=== PATIENT | male | born 1965 | race Caucasian/White ===

== ENCOUNTER 2023-04-27 16:44 | Outpatient (CLI) | payer BC, SELFPAY ==
--- NOTE | ~2023-04-27 | XR_ITS ---
EXAM: XR hand LT min 3V DATE: 04/27/2023 17:26 HISTORY: M79.642 - Pain in left hand/MOSTLY 4TH DIGIT/NO TRAUMA . COMPARISON: 08/16/2017. FINDINGS: Normal mineralization. No fracture or dislocation. No lytic or blastic lesion. Mild degene rative change at the trapeziometacarpal joint, the remaining joint spaces are maintained. No erosion or periosteal change. Soft tissues within normal limits. IMPRESSION: Unremarkable left hand radiograph findings. Reviewed, dictated and finalized at location [facility] [employer] [facility]
== END 2023-04-27 16:45 | disposition home or self-care (01) ==
PROVIDERS: PCP Family Medicine; Visit Provider Nurse Practitioner Family
DX: M79.642 Pain in left hand (principal)
CPT/HCPCS: 73130

== ENCOUNTER 2024-10-17 13:58 | Outpatient (CLI) | payer OTHER, SELFPAY ==
--- OUTSIDE RECORDS SUMMARY | 2024-10-17 14:08 | XMS_ITS | Clinical Summary ---
Author Organization [facility] Address [address] [place] [address] Phone Care Team Providers Care House Detective Name Role Phone Matt Abdullahi MD Primary Care Provider [phone] Allergies No known active allergies Medications simvastatin (ZOCOR) 40 MG Tablet Take 40 mg by mouth every evening. Active HYDROcodone-ac etaminophen (NORCO) 5-325 MG Tablet Take 1 Tab by mouth every 8 hours as needed for Pain. Active traMADol (ULTRAM) 50 MG Tablet Take 50 mg by mouth every 8 hours as needed for Pain. Active acetaminophen (TYLENOL) 500 MG Tablet Take 1 Tab by mouth every 6 hours as needed for Pain or Fever (for temperature greater than 100.4 F). Do not exceed 3000 mg of acetaminophen in 24 hour from all sources. 6 Active Active Problems Problem Noted Date Diagnosed Date Tear of medial meniscus of left knee 08/07/2015 Family History Medical History Relation Name Comments Cancer Mother Relation Name Status Comments Father Mother Social History Tobacco Use Types Packs/Day Years Used Date Smoking Tobacco: Every Day Cigarettes Smokeless Tobacco: Never Alcohol Use Standard Drinks/Week Comments Yes 2 (1 standard drink = 0.6 oz pur e alcohol) Sex and Gender Information Value Date Recorded Sex Assigned at Not on file Legal Sex Male 1:25 PM [employer] Gender Identity Not on file Sexual Orientation Not on file Last Filed Vital Signs Vital Sign Reading Time Taken Comments Blood Pressure 142/90 08/07/2015 6:10 PM CDT Pulse 80 08/07/2015 6:10 PM CDT Temperature 35.9 C (96.6 F) 08/07/2015 6:10 PM CDT Respiratory Rate 16 08/07/2015 6:10 PM CDT Oxygen Saturation 95% 08/07/2015 6:10 PM CDT Inhaled Oxygen Concentration - - Weight 103 kg (227 lb) 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 Height 182.9 cm (6') 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 Body Mass Index 30.79 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 Plan of Treatment Health Maintenance Due Date Last Done Comments Hepatitis C Virus (HCV) Screening 1966 TdaP Immunization 1966 Pneumococcal Immunization Co mbined (1 of 2 - PCV) 1972 Hepatitis B Immunization (1 of 3 - 19+ 3-dose series) 1985 Colonoscopy 2011 Colorectal Cancer Screening 2011 Cologuard 2016 Immunochemical Fecal Occult Blood 2016 Pneumococcal Immunization (5 0+ years) (1 of 1 - PCV) 2016 Zoster Immunization (1 of 2) 2016 PSA Discussion 2021 Influenza Immunization (#1) 2024 SARS-COV-2 Immunization ( - 2023- season) 2024 Respiratory Syncytial Virus (RSV) Immunization (Adult) (1 - 1-dose 75+ series) 2041 Meningococcal Immunization (ACWY) Aged Out No longer eligible based on patient's age to complete this topic Rotavirus Immunization Aged Out No lo nger eligible based on patient's age to complete this topic Insurance Care Teams House Detective Relationship Specialty Start Date End Date Matt Abdullahi MD [address] [place] [address] PCP - General Family Medicine 07/27/15
[2024-10-17 14:55] LABS: Alanine Aminotransferase 39 U/L (6-50); Albumin Level 4.4 g/dL (3.5-5.1); Alkaline Phosphatase 51 U/L (38-126); Anion Gap 3 mmol/L (4-12); Aspartate Amino Transferase 35 U/L (17-59); Bilirubin,Total 0.3 mg/dL (0.2-1.3); Blood Urea Nitrogen 19 mg/dL (9-20); Carbon Dioxide 29 mmol/L (22-30); Chloride 107 mmol/L (98-107); Estimated Glomerular Filt Rate > 60; Glucose 106 mg/dL (65-110); Osmolality Calculated 290 mOsm/kg (285-295); Potassium 4.2 mmol/L (3.4-5.0); Sodium 139 mmol/L (137-145); Total Protein 6.7 g/dL (6.3-8.2); Uric Acid 5.4 mg/dL (3.5-8.5)
== END 2024-10-17 13:59 | disposition home or self-care (01) ==
LOC: CHSLAB 14:01
PROVIDERS: PCP Family Medicine; Visit Provider Nurse Practitioner Family
DX: Z00.00 Encounter for general adult medical examination without abnormal findings (principal); R22.32 Localized swelling, mass and lump, left upper limb
CPT/HCPCS: 36415; 80053; 84550